=== PATIENT | female | born 1990 | race Hispanic/Latino ===

== ENCOUNTER 2020-02-08 07:10 | Day surgery (SDC) | payer MEDICAID, OTHER ==
[2020-02-08 07:49] VITALS: BMI 29.8
[2020-02-08] MEDS ORDERED: hydrALAZINE 20 MG/ML VIAL SLOW IVP PRN (08:49)
[2020-02-08] MEDS ORDERED: Famotidine 20 MG TAB PO SCH (09:00)
--- NOTE | 2020-02-08 09:01 | PDOC.FPROB ---
FMR OB H&P: HPI - History of Present Illness Chief Complaint: Abdominal Pain Indentification: History of Present Illness: Pt is a 29 yo at 37.5 weeks by 1T u/s, ABI who presents with upper abdominal pain/discomfort worsening since last night. She states it is her "upper stomach". The pain is constant, not alleviated by anything although she has not taken any medication. She has not had a cholecystectomy but admitted to an appendectomy. She has a bad taste in her mouth. She has PMH of reflux not taking medication. Endorsed 1 episode of emesis. She denies LOF, vaginal bleeding, intense/diffuse abdominal pain, dysuria, hematuria, vaginal discharge. She does not know if these are contractions. 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 Smoked tobacco 5 years ago. - Family History Family History: non-contributory FMR OB H&P: Medications - Current Home Medications: Medication Instructions Recorded Confirmed Type metFORMIN [Glucophage] 1 tab PO DAILY 02/08/20 02/08/20 History Allergies/Adverse Reactions: Allergies Allergy/AdvReac Type Severity Reaction Status Date / Time NSAIDS (Non-Steroidal Allergy Verified 02/08/20 07:44 Anti-Inflamma FMR OB H&P: ROS - Review of Systems General: denies: fever/chills, weight/appetite/sleep changes ENT: denies: nasal congestion, rhinorrhea Cardiovascular: denies: chest pain, edema Gastrointestinal: reports: abdominal pain, indigestion, nausea, vomiting. denies: cramping, diarrhea, constipation Genitourinary (Female): denies: incontinence, dysuria, hematuria Musculoskeletal: denies: pain, stiffness Neurologic: denies: numbness, syncope Integumentary: denies: rash, lesions Hematologic/Lymphatic: denies: prolonged or excessive bleeding FMR OB H&P: Vital Signs - Maternal Vital signs: BP WNL - Heart Tones Variability: moderate Acceleration: present Category: category 1 [place] contractions every: q3-4 mins FMR OB H&P: Physical Exam - Physical Exam General: NAD, awake, alert and oriented HEENT: PERRLA, EOMI Neck: FROM, no JVD Heart: RRR, normal S1/S2 General: CTAB, no respiratory distress, no wheezing Abdomen: soft, gravid Deviation from normal: mild tenderness in epigastric region, negative gonzalez's sign Musculoskeletal: FROM in all four extremities Neurological: cranial nerves II through XII intact, sensation to pain,touch and proprioception grossly normal Skin: no rash, capillary refill <2 seconds Lymphatic: no purpura, no petechia Psychiatric: intact recent and remote memory, good judgement and insight FMR OB H&P: Results - Labs Lab results: Laboratory Results - last 24 hr 02/08/20 07:43 POC Glucose 86 FMR OB H&P: A/P - Problem List (1) Third trimester Current Visit: Yes Status: Acute Code(s): Z34.93 - ENCNTR FOR SUPRVSN OF NORMAL PREG, UNSP, THIRD TRIMESTER (2) Gestational diabetes Current Visit: Yes Status: Acute Code(s): O24.419 - GESTATIONAL DIABETES MELLITUS IN , UNSP CONTROL (3) Abdominal pain Current Visit: Yes Status: Acute Code(s): R10.9 - UNSPECIFIED ABDOMINAL PAIN Disposition: Pt is a 29 yo at 37.5 wks by 1T U/S, ABI 37.5 wks, who presents for upper abdominal discomfort: # Abdominal Discomfort Likely GERD, r/o gallbladder etiology. Chacorta on monitor - will reassess in 2 hours for change. - pending CMP, RUQ U/S - famotidine for reflux - tylenol for pain # Term IUP 1, thich, high on check today. eIOL 02/17/20 for A2GDM. - will recheck in 2 hours for progression of labor - pending 3T labs from [facility] # A2GDM BG WNL - continue metformin Dispo: pending workup, assess for cervical change in 2 hours. Discussion: Date/Time: 02/08/20 0901 This H&P was discussed with Dr. Gordon and Dr. Zamora who agree with the above documentation and plan.
[2020-02-08] MEDS ORDERED: Acetaminophen 325 MG TAB PO SCH (09:45)
--- NOTE | 2020-02-08 10:17 | HP ---
TIME OF EVALUATION: The time of evaluation was roughly 0920 until 0940. The time is now 0944. LOCATION: Triage bed A. In brief, this is a patient of the clinic and I have discussed the case with Yariel Mcgowan, who is a resident center receptionist. CHIEF COMPLAINT: Possible gastroesophageal reflux symptoms (which have been chronic). HISTORY OF PRESENT ILLNESS: This is a 29-year-old G1 at 37 weeks and 5 days, who has a scheduled induction of labor on February 16 at around 39 weeks. She has A2 diabetes and she is on metformin. She states that she has had this persistent reflux symptom in her mid chest, but there is no shortness of breath and no true chest pain. There is no diaphoresis. There is no loss of consciousness. She also has a "bad taste" in her mouth, which to her feels like "reflux." There is no leakage of fluid. No contractions as well. She notes a few contractions. She does not state that they are regular and that is not her presenting complaint. REVIEW OF SYSTEMS: Complete review of systems was checked and is otherwise negative unless specified in the HPI. PAST MEDICAL HISTORY: Otherwise negative. OB HISTORY: She is a G1, P0. PAST SURGICAL HISTORY: Prior Appy. SOCIAL HISTORY: Negative for alcohol, tobacco, or drug use. ALLERGIES: NONE. PHYSICAL EXAMINATION: VITAL SIGNS: She is afebrile and normotensive. Blood sugar at bedside was 86. Abd soft and NT. Her cervix is1, thick and high. MONITORS: Tocodynamometer shows irregular contractions about every 4 minutes or so, and the heart tracing is reactive with accelerations above a baseline of about 130 with moderate variability. There are no pathological decelerations. ASSESSMENT: This is a G1, P0, at 37 weeks and 5 days, 29-year-old, with epigastric reflux symptoms. There are no symptoms of biliary colic or of true chest pain. PLAN: 1. To be conservative, I have requested Dr. Mcgowan get a complete metabolic profile and a right upper quadrant ultrasound to rule out any atypical presentations of hepatic conditions. 2. We will check her cervix in 2 hours. 3. We will order Pepcid for conservative care. 4. I have seen the patient at bedside and she is clinically stable. 5. I have explained the plan to the patient in detail. Job ID: [id number] [facility]
--- NOTE | 2020-02-08 10:46 | ULT ---
Exam: Right upper quadrant ultrasound: HISTORY: Right-sided abdominal pain and right upper and right lower quadrant. COMPARISON: None FINDINGS: Liver: Within normal limits Gallbladder: Echogenic foci are seen in the gallbladder lumen which demonstrate posterior shadowing w ith additional areas of increased echogenicity. Findings are most likely attributable to combination of gallbladder calculi, cholesterol crystals, and sludge within the gallbladder lumen. No gallbladder wall thickening or pericholecystic fluid is seen. Common bile duct: The common duct is normal in caliber measuring 0.3 cm in diameter. Pancreas: Limited visualized portions of the pancreas demonstrate a normal sonographic appearance. Right kidney: Right kidney demonstrates a normal sonographic appearance without evidence of hydroneph rosis. The right kidney measures 11.5 cm in length. IVC: The visualized IVC demonstrates a normal sonographic appearance. Limited sonographic evaluation was obtained of the right lower quadrant region of patient's area of p ain. There is a hypoechoic rounded structure measuring 4.2 cm x 3.7 cm x 2.2 cm. This structure does not demonstrate flow on color flow or Doppler evaluation. The exact etiology of this structure i s uncertain. This structure is located within the superior facial portion of the anterior right lower quadrant. This structure does not elongate to suggest that this represents the appendix. IMPRESSION: 1. Hypoechoic structure right lower quadrant region of patient's area of pain. This does not elongate or demonstrate a tubular configuration to definitely suggest that this represents the appendix. The exact etiology is uncertain. Additional imaging with CT or MRI would be warranted for further dread luation of this structure. Appendicitis cannot be excluded based on this examination. 2. Cholelithiasis and gallbladder sludge. Common duct is normal in caliber. 3. No evidence of hydronephrosis
[2020-02-08 11:24] LABS: ALT (SGPT) 13 U/L (8-55); AST (SGOT) 14 U/L (5-34); Albumin 3.5 g/dL (3.5-5.0); Alkaline Phosphatase 95 U/L (40-110); Anion Gap 11 mmol/L (10-20); BUN (Urea Nitrogen) 7 mg/dL (7.0-18.7); Bilirubin, Total 0.4 mg/dL (0.2-1.2); Calc. Creatinine Clearance 195 mL/min (70-130); Calcium 8.7 mg/dL (7.8-10.44); Carbon Dioxide 23 mmol/L (22-29); Chloride 106 mmol/L (98-107); Estimated GFR-MDRD Greater than 90; Globulin 3.2 g/dL (2.4-3.5); Glucose 80 mg/dL (70-105); Protein, Total 6.7 g/dL (6.0-8.3); Sodium 136 mmol/L (136-145)
--- NOTE | 2020-02-08 11:36 | PDOC.LDPN ---
Labor & Delivery Progress Note - Subjective Subjective: comfortable - Objective Vital signs reviewed and normal: yes General: NAD, resting SVE: 1/thick/high - Assessment (1) Third trimester Code(s): Z34.93 - ENCNTR FOR SUPRVSN OF NORMAL PREG, UNSP, THIRD TRIMESTER Current Visit: Yes Status: Acute (2) Gestational diabetes Code(s): O24.419 - GESTATIONAL DIABETES MELLITUS IN , UNSP CONTROL Current Visit: Yes Status: Acute (3) Abdominal pain Code(s): R10.9 - UNSPECIFIED ABDOMINAL PAIN Current Visit: Yes Status: Acute (4) Cholelithiasis Code(s): K80.20 - CALCULUS OF GALLBLADDER W/O CHOLECYSTITIS W/O OBSTRUCTION Current Visit: Yes Status: Acute Plan: other (OBGYN Faculty: Aware of RUQ sono finding cholelithiasis. No CBD dilation or sono evidence of GB wall thickening. OK for outpat care with GB information provided.) -: Pt is a 29 yo at 37.5 wks by 1T U/S, ABI 37.5 wks, who presents for upper abdominal discomfort: # Abdominal Discomfort Likely GERD, r/o gallbladder etiology. Chacorta on monitor - will reassess in 2 hours for change. - pending CMP, RUQ U/S - famotidine for reflux - tylenol for pain # Term IUP 1, thich, high on check today. eIOL 02/17/20 for A2GDM. - will recheck in 2 hours for progression of labor - pending 3T labs from [facility] # A2GDM BG WNL - continue metformin # Cholelithiasis - counseled pt, pt understands symptoms and return precautions # Vaginal Discharge Curd-like appearing, white, non-foul smelling - discharge with monostat Dispo: discharge to home with return precautions given OBGYN Faculty: Aware of GB findings. No CBD dilation or GB wall thickening. OK to follow up PP. Info provided by Resident team. CMP ok.
== END 2020-02-08 11:54 | disposition home health service (06) ==
LOC: L&D/OP 07:10
PROVIDERS: ATTEND Family Medicine
DX: O99.613 Diseases of the digestive system complicating pregnancy, third trimester (principal); K80.20 Calculus of gallbladder without cholecystitis without obstruction; O24.415 Gestational diabetes mellitus in pregnancy, controlled by oral hypoglycemic drugs; Z3A.37 37 weeks gestation of pregnancy; Z79.84 Long term (current) use of oral hypoglycemic drugs; Z88.6 Allergy status to analgesic agent
CPT/HCPCS: 36415; 36416; 76705; 80053; 99284

== ENCOUNTER 2020-02-15 11:57 | Day surgery (SDC) | payer OTHER ==
[2020-02-15 12:31] VITALS: BP 112/71; TEMP 98.2; BMI 30.9
--- NOTE | 2020-02-15 13:15 | PDOC.LDHP ---
Labor and Delivery H&P Chief complaint: decreased movement HPI: 29yo @ 38.5 wks by LMP and 6.5 wk sono presents from clinic with complaint of decreased movement x2 days and an incomplete BPP of 2. Pt states she has been feeling normal, denies any vaginal pain/bleeding/discharge, LOF. Does note feeling some very mild contractions intermittently. Pt has induction scheduled at 39 weeks. She is a GDM A2 and takes metformin 500 qam with glucose ranging from 85-110 recently. Current gestational age (weeks): 38 (.5) Dating criteria: last menstrual period, first trimester ultrasound Grav: 1 Para: 0 Current complications: gestational diabetes (A2) Abnormal US findings: No Current medications: pre- vitamins Previous surgical history: appendectomy Allergies/Adverse Reactions: Allergies Allergy/AdvReac Type Severity Reaction Status Date / Time naproxen Allergy Verified 02/15/20 12:34 NSAIDS (Non-Steroidal Allergy Verified 02/08/20 07:44 Anti-Inflamma Social history: none - Physical Exam Vital signs reviewed and normal: yes General: NAD Heart: RRR Lungs: nonlabored breathing Abdomen: NTTP Extremeties: normal range of motion FHT: category 1, acceleration absent, variability present - OB Labs Blood type: B RH: positive Antibody Screen: negative HIV: negative RPR: negative HEPSAg: negative 1 hour GCT: positive (171) 3 hour GTT: 69/174/155/118 GBS: negative Rubella: immune Additional Labs: hep c neg A1c 5.3% - Assessment Encounter of 3rd Trimester - no abnormal findings - Plan -: Concern for reported abnormal BPP and Decreased Movement BPP:04/27 GELY: 10 NST: reactive Growth: EFW 3149g, EGA 37.1 Pt reports no concerning symptoms. GDM appears well controlled. BPP done in the office today that was 2 was over a 20 minute timeframe and thus incomplete - no NST was performed at that time. Pt is considered stable for discharge and follow up on her induction date at 39 weeks. Discussed return precautions prior to discharge - pt and FOB expressed understanding. Adebayo Armendariz PGY1 This case was discussed my attending, Dr. Jefe Armas, who agreed with the plan. Addendum - Attending - Attending Attestation Date/Time: 02/16/20 5628 Seen and examined on date of service. BPP in office was reportedly only for 20 minutes and no NST performed. Repeat growth and APT reassuring. D/c with follow up for induction @ 39/0.
--- NOTE | 2020-02-15 14:20 | ULT ---
EXAM: Limited OB ultrasound COMPARISON: None HISTORY: female. Evaluate size. Decreased movement.. TECHNIQUE: Multiplanar grayscale and color Doppler transabdominal sonographic images are obtained. FINDINGS: There is a single intrauterine gestation in cephalic presentation. Cardiac Doppler demonstr ates heart tones with a heart rate of 135 beats per minute. The placenta is located maternal right without evidence of placenta previa. There is a normal amount of amniotic fluid with a n amniotic fluid index of 10 centimeters. Cervix not visualized due to shadowing from head. biometry measurements: BPD 8.95 cm -- 36 weeks 2 days HC 33.32 cm -- 38 weeks AC 33.51 cm -- 37 weeks 3 days FL 7.2 cm -- 36 weeks 6 days The estimated gestational age by ultrasound is 37 weeks 1 day with an ABI on03/06/2020. Gestational ag e by the last menstrual period is not provided. The estimated weight by ultrasound is 3149 g (6 pounds, 15 ounces). This exam was not performed for evaluation of the anatomical structures. A score of 2 was obtained each for tone, breathing, movements, and amniotic fluid v olume IMPRESSION: 1. Single intrauterine gestation in cephalic presentation with heart tones documented. Estimat ed gestational age by ultrasound is 37 weeks 1 day with ABI on 03/06/2020. 2. Estimated weight is 3149 g (6 pounds, 15 ounces). 3. Amniotic fluid index is 10 centimeters. 4. Total biophysical profile score of 8 out of 8 is obtained.
== END 2020-02-15 13:47 | disposition home health service (06) ==
LOC: L&D/OP 11:57
DX: O36.8130 Decreased fetal movements, third trimester, not applicable or unspecified (principal); O24.415 Gestational diabetes mellitus in pregnancy, controlled by oral hypoglycemic drugs; Z3A.38 38 weeks gestation of pregnancy; Z88.6 Allergy status to analgesic agent
CPT/HCPCS: 76815; 76819; 99283

== ENCOUNTER 2020-02-16 08:55 | Outpatient (CLI) | payer MEDICAID, OTHER ==
[2020-02-16 17:52] LABS: SARS-CoV-2 MS2 Positive; SARS-CoV-2 N Gene Negative; SARS-CoV-2 S Gene Negative; SARS-CoV-2 orf1ab Negative
== END 2020-02-16 08:56 | disposition home or self-care (01) ==
LOC: ERS 08:55 → LAB 08:56
PROVIDERS: ATTEND Student in an Organized Health Care Education/Training Program
DX: Z01.812 Encounter for preprocedural laboratory examination (principal); Z11.59 Encounter for screening for other viral diseases
CPT/HCPCS: 87635; U0003

== ENCOUNTER 2020-02-17 14:28 | Inpatient (IN) | payer OTHER ==
[~2020-02-17 14:28] MED LIST: Bupivacaine/Epinephrine 0.25% 30 ML VIAL ONE
[2020-02-17] MEDS ORDERED: Carboprost 250 MCG/ML AMP IM PRN (19:30)
[2020-02-17] MEDS ORDERED: Lidocaine 1% (PF) 30 ML VIAL SC PRN (19:30)
[2020-02-17] MEDS ORDERED: Diphenoxylate HCl/Atropine Tablet PO PRN (19:30)
[2020-02-17] MEDS ORDERED: NS / Oxytocin 40 units/1000ml 1,000 ML IV PRN (19:30)
[2020-02-17] MEDS ORDERED: Methylergonovine 0.2 MG/ML VIAL IM PRN (19:30)
[2020-02-17] MEDS ORDERED: Misoprostol 200 MCG TAB PR PRN (19:30)
[2020-02-17] MEDS ORDERED: Dextrose 50% Abboject 50 ML SYRINGE SLOW IVP PRN (19:32)
[2020-02-17] MEDS ORDERED: Dextrose 5% in Water 1,000 ML IV PRN (19:32)
[2020-02-17] MEDS ORDERED: HumaLOG 300 UNITS/3 ML VIAL SC PRN (19:32)
--- NOTE | 2020-02-17 20:17 | PDOC.FPROB ---
FMR OB H&P: Medications - Current Home Medications: Medication Instructions Recorded Confirmed Type metFORMIN [Glucophage] 1 tab PO DAILY 02/08/20 02/17/20 History Allergies/Adverse Reactions: Allergies Allergy/AdvReac Type Severity Reaction Status Date / Time naproxen Allergy Verified 02/17/20 20:25 NSAIDS (Non-Steroidal Allergy Verified 02/17/20 20:25 Anti-Inflamma FMR OB H&P: A/P - Problem List (1) Gestational diabetes Status: Acute Code(s): O24.419 - GESTATIONAL DIABETES MELLITUS IN , UNSP CONTROL (2) Third trimester Status: Acute Code(s): Z34.93 - ENCNTR FOR SUPRVSN OF NORMAL PREG, UNSP, THIRD TRIMESTER Discussion: Date/Time: 02/17/202013 PCP: Ashley HPI: This is a 29 yo presenting for induction 2/2 A2GDM. She affirms movement, denies cxns, ROM, bleeding. Denies ROLDAN, visual changes, SOB, or swelling. She had incomplete care as she moved here from [place] at 24 weeks but then returned from [place] for >1 month and has now returned. History: OB hx: G1 [employer]: LSIL with HR HPV PMH: denies hx HTN, DM, asthma PSH: appendectomy Meds: PNV, metformin 500mg BID All: ibuprofen, naproxen-> facial swelling Soc Hx: denies smoking, alcohol, drugs Fam Hx: denies downs, congenital defects GBS: neg Blood type: B+ Ab screen: neg HIV: neg RPR: neg Hep B: neg Rubella: immune GC/CT: neg REVIEW OF SYSTEMS: Gen: no fever, chills, or sweats Neuro: no numbness/tingling, no weakness, denies headache ENT: denies congestion Eyes: no visual changes Resp: denies cough, no production, no SOB, no wheeze Card: denies chest pain, no palpitations GI: denies nausea, vomiting, diarrhea : no dysuria, no hematuria Skin: no rash, no erythema Psych: denies hx anxiety/depression Vitals: T: 98.5 R: 18 BP: 114/76 P:67 at: 98% on RA PHYSICAL EXAMINATION: General: NAD, alert and oriented x3 HEENT: EOMI, normal sclera Neck: Supple. Full ROM. Heart/Cardiovascular System: RRR, Cap refill < 3 seconds, no rub, no murmur Lungs/Respiratory System: clear to auscultation bilaterally. No increased work of breathing. Room air. Abdomen/Gastro-Intestinal System: no abdominal tenderness, normal bowel sounds, Gravid Extremities: Warm extremities. No cyanosis or edema. Neuro: No gross deficits appreciated Psychiatry: Awake, Alert and cooperative with exam Skin: no lesions, no rashes Musculoskeletal: Full ROM A/P: This is a 29 yo here for induction 2/2 A2GDM FHT: 140 baseline, mod variability, no decels, accels present [place]: irregular contractions # - SVE: cl/50%/-2 - Cytotec induction - GBS neg # A2GDM - Check glucose q4 hr, goal <126 - Metformin 500mg BID - 3106g at 36.5wk US # LSIL w/ HR HPV - Colpo 6 wk PP Addendum - Attending - Attending Attestation Date/Time: 02/17/202128 I personally evaluated the patient and discussed the management with Dr. Duran. I agree with the History, Examination, Assessment and Plan documented above with any addition or exceptions noted below.
[2020-02-17 20:33] VITALS: BMI 29.6
[2020-02-17] MEDS: Misoprostol 100 MCG TAB VAG SCH (21:05)
[2020-02-17 22:36] LABS: Hemoglobin 12.6 g/dL (12.0-16.0); Mean Corpuscular HGB CONC 31.4 g/dL (32.0-36.0); Mean Corpuscular Hemoglobin 29.2 pg (27.0-31.0); Mean Corpuscular Volume 93.1 fL (78.0-98.0); Mean Platelet Volume 8.4 fL (7.4-10.4); Platelet Count 414 thou/uL (130-400); RBC Distribution Width 12.3 % (11.5-14.5); Red Blood Cell (RBC) Count 4.33 mill/uL (4.20-5.40); White Blood Cell (WBC) Count 11.1 thou/uL (4.8-10.8)
[2020-02-17 23:16] LABS: HBSAg Index 0.33 S/CO (0-0.99); Hep B Surf Ag Non-Reactive S/CO (NonReactive)
[2020-02-18] MEDS: Misoprostol 100 MCG TAB VAG SCH ×2 (00:49→14:19)
--- NOTE | 2020-02-18 00:52 | PDOC.LDPN ---
Labor & Delivery Progress Note - Subjective Subjective: comfortable - Objective Vital signs reviewed and normal: yes General: NAD, resting, breathing through contractions Uterine fundus: non tender SVE: @ 00:30 Dilation: 1 Effacement: 75% Station: -2 FHT: category 1 [place] contractions every: 2 minutes Plan: continue plan of care, other (Will place cytotec #2 when contractions space out further. ) -: This is a 29 yo here for induction 2/2 A2GDM FHT: 140 baseline, mod variability, no decels, accels present [place]: contractions q2 min # - SVE: cl/50%/-2 @ 20:00 - SVE: 1/75/-2 @ 00:30 - Cytotec induction - GBS neg # A2GDM - Check glucose q4 hr, goal <126 - Metformin 500mg BID - 3106g at 36.5wk US # LSIL w/ HR HPV - Colpo 6 wk PP
[2020-02-18] MEDS: Butorphanol Tartrate 1 MG/ML VIAL SLOW IVP PRN ×2 (01:54→03:27)
[2020-02-18] MEDS ORDERED: Fentanyl 4 mcg/Bup 0.1% Cadd 100 ML ONE (03:53)
[2020-02-18] MEDS ORDERED: Dextrose 5%-Lactated Ringers 1,000 ML IV SCH (04:45)
--- NOTE | 2020-02-18 04:45 | PDOC.LDPN ---
Labor & Delivery Progress Note - Subjective Subjective: comfortable, painful contractions - Objective Vital signs reviewed and normal: yes General: NAD, resting, breathing through contractions Uterine fundus: non tender SVE: @ 0330 by RN Dilation: /-1 FHT: category 2 (Baseline 120, few early decels present, acells present ) [place] contractions every: 2min Other exam findings: SROM 0130 Procedures: EPIDURAL 0430 Plan: continue plan of care -: This is a 29 yo here for induction 2/2 A2GDM FHT: 140 baseline, mod variability, no decels, accels present [place]: contractions q2 min # Term sIUP - SVE: cl/50%/-2 @ 20:00 - SVE: /-2 @ 00:30 - SVE /-1 @ 0330, wanting epidural - Cytotec induction - GBS neg # A2GDM - Category 2 tracing. BG 72, changed fluids from LR to D5 LR @ 125. - Check glucose q2 hr, goal <126 - Metformin 500mg BID - 3106g at 36.5wk US # LSIL w/ HR HPV - Colpo 6 wk PP
[2020-02-18] MEDS ORDERED: Acetaminophen 325 MG TAB PO PRN (05:13)
[2020-02-18] MEDS ORDERED: Lactated Ringer's 500 ML IV PRN (05:13)
[2020-02-18] MEDS ORDERED: Naloxone HCl 0.4 mg/ml Vial IVP PRN ×2 (05:13)
[2020-02-18] MEDS ORDERED: diphenhydrAMINE 50 MG/ML VIAL IVP PRN (05:13)
[2020-02-18] MEDS ORDERED: Ondansetron PF 4 MG/2 ML Vial IVP PRN ×2 (05:13→10:49)
[2020-02-18] MEDS ORDERED: EPHEDRINE 25 MG/5 ML SYRINGE SLOW IVP PRN (05:13)
[2020-02-18] MEDS ORDERED: Promethazine HCl 25 MG/ML VIAL IM PRN (05:13)
[2020-02-18] MEDS ORDERED: Communication Order-Pharmacy FS SCH (05:15)
[2020-02-18] MEDS ORDERED: Fentanyl 4 mcg/Bupivacaine 0.1% Cassette 100 ML EPIDURAL SCH (05:15)
--- NOTE | 2020-02-18 06:55 | PDOC.BPN ---
- Brief Progress Note BG119 switched back to LR, goal <126 blood glucose Cat 1 strip currently with good variability, accles present, early decels 1 late variable Expectant management
[2020-02-18] MEDS ORDERED: Calcium Carbonate 500 MG ChewTAB PO PRN (07:50)
[2020-02-18 10:06] LABS: Actual Bicarbonate (HCO3a) 23.1 mEq/L (22-28)
--- NOTE | 2020-02-18 10:34 | PDOC.OPDEL ---
OB Operative/Delivery Note - Additional Findings/Plan Compilations/Other Findings: Vaginal Delivery Procedure note Delivering Physician: Dr. Dagoberto Duran Attending: Dr. Jefe Armas Procedure: Spontaneous Vaginal Delivery Anesthesia: epidural QBL:79 ml Pre-op Diagnosis: 1. Term intrauterine induction 2. A2GDM 3. LSIL w/ HR HPV Post-op Diagnosis: 1. Term intrauterine , delivered 2. same as above Indications: A 29y/o female presented for induction Delivery Note: This is 29yo F now @ 39.1wks who delivered a viable F infant at 0943 on 02/17. Following an uneventful antepartum course, a vigorous female was delivered over an intact perineum in the occipitoanterior position. Anterior Shoulder and then remainder of the body delivered. No nuchal cord. The head was held down and mouth and nares were bulb suctioned. Cord clamped and cut and cord blood collected. Placenta delivered intact in the Vega/Marie presentation with a 3 vessel cord noted. Fundal massage was performed and the fundus was firm. The cervix and vagina were inspected and a 2nd degree perineal laceration was appreciated. Repaired with 2-0 vicryl in the usual fashion with good approximation and hemostasis. Infant went to nursery in good condition for routine care. Apgars were 7/9 at 1 & 5 minutes, respectively. Patient tolerated delivery well and went to after routine recovery/ care. Addendum - Attending - Attending Attestation Date/Time: 02/18/20 7847 I personally evaluated the patient and discussed the management with Dr. Duran. I agree with the History, Examination, Assessment and Plan documented above with any addition or exceptions noted below.
[2020-02-18] MEDS ORDERED: Bisacodyl 10 MG SUPP PR PRN (10:49)
[2020-02-18] MEDS ORDERED: Lanolin Ointment 7 GM TUBE TOP PRN (10:49)
[2020-02-18] MEDS ORDERED: Benzocaine-Menthol 82.5 ML CAN TOP PRN (10:49)
[2020-02-18] MEDS ORDERED: Milk Of Magnesia 30 ML UDCUP PO PRN (10:49)
[2020-02-18] MEDS ORDERED: NS / Oxytocin 40 units/1000ml 1,000 ML IV SCH (10:49)
[2020-02-18] MEDS ORDERED: hydrALAZINE 20 MG/ML VIAL SLOW IVP PRN (10:49)
[2020-02-18] MEDS ORDERED: Acetaminophen/Codeine 30-300mg Tablet PO PRN (10:49)
[2020-02-18] MEDS: Acetaminophen 500 MG TAB PO SCH ×3 (14:12→22:45)
[2020-02-18] MEDS: Ferrous Sulfate 325 MG TAB PO SCH (14:13)
[2020-02-18] MEDS: Docusate Calcium (SURFAK) 240 MG CAP PO SCH (21:21)
--- NOTE | 2020-02-19 04:52 | PDOC.PP ---
Post Progress Note Post Day #: 1 Subjective: Mom states she is feeling well, able to walk to restroom. Tolerating PO. Passing gas. No difficulty with urination. Bleeding less than menses. PO intake tolerated: yes Flatus: yes Ambulation: yes Vital Signs (12 hours) Temp Pulse Resp BP Pulse Ox 02/19/20 00:02 98.6 F 75 18 109/72 96 02/18/20 20:00 98.6 F 76 18 94/61 94 L Weight Weight 73.482 kg - Physical Examination General: NAD Cardiovascular: no m/r/g, RRR Respiratory: clear to auscultation bilaterally, non-labored breathing Abdominal: appropriately TTP Fundus firm & at: 1 cm below umbilicus Extremities: negative homans (B) Neurological: no gross focal deficits Psychiatric: A&Ox3, normal affect Result Diagrams: 02/17/20 22:22 Additional Labs: Post Labs Blood Type B POSITIVE 02/17/20 23:26 Hep Bs Antigen Non-Reactive S/CO (NonReactive) 02/17/20 22:22 (1) Gestational diabetes Code(s): O24.419 - GESTATIONAL DIABETES MELLITUS IN , UNSP CONTROL Status: Acute (2) Third trimester Code(s): Z34.93 - ENCNTR FOR SUPRVSN OF NORMAL PREG, UNSP, THIRD TRIMESTER Status: Acute - Assessment/Plan # PPD1 - H/H pending - tylenol, norco for pain control - tolerating PO # A2GDM -hold metformin, glucose appropriate, ACHS # LSIL w/ HR HPV - Colpo 6 wk PP
[2020-02-19] MEDS: Acetaminophen 500 MG TAB PO SCH ×4 (05:15→23:47)
[2020-02-19 06:15] LABS: Hemoglobin 11.8 g/dL (12.0-16.0)
[2020-02-19] MEDS: Ferrous Sulfate 325 MG TAB PO SCH ×2 (07:34→15:02)
[2020-02-19] MEDS: Docusate Calcium (SURFAK) 240 MG CAP PO SCH ×2 (09:53→21:45)
[2020-02-19] MEDS: Prenatal Vitamin 1 TAB PO SCH (09:53)
[2020-02-19] MEDS ORDERED: Adacel (T-DAP) 0.5 ML SYRINGE IM ONE (10:49)
[2020-02-20] MEDS: Acetaminophen 500 MG TAB PO SCH (05:19)
--- NOTE | 2020-02-20 06:18 | PDOC.PP ---
Post Progress Note Post Day #: 2 Subjective: Pain well controlled, minimal bleeding, tolerating PO, had BM. Assisted patient with , provided education and encouragement. PO intake tolerated: yes Flatus: yes Ambulation: yes Vital Signs (12 hours) Temp Pulse Resp BP Pulse Ox 02/19/20 20:00 98.8 F 62 16 120/77 96 Weight Weight 73.482 kg - Physical Examination General: NAD Cardiovascular: no m/r/g, RRR Respiratory: clear to auscultation bilaterally, non-labored breathing Abdominal: + bowel sounds, lochia, no distention, appropriately TTP Extremities: negative homans (B) Skin: no rash Neurological: no gross focal deficits Psychiatric: A&Ox3, normal affect Result Diagrams: 02/19/20 05:48 Additional Labs: Post Labs Blood Type B POSITIVE 02/17/20 23:26 Hep Bs Antigen Non-Reactive S/CO (NonReactive) 02/17/20 22:22 (1) Gestational diabetes Code(s): O24.419 - GESTATIONAL DIABETES MELLITUS IN , UNSP CONTROL Status: Acute (2) Third trimester Code(s): Z34.93 - ENCNTR FOR SUPRVSN OF NORMAL PREG, UNSP, THIRD TRIMESTER Status: Acute (3) care and examination Code(s): Z39.2 - ENCOUNTER FOR ROUTINE FOLLOW-UP Status: Acute - Assessment/Plan # PPD2 - Hgb 11.8 - tylenol, norco for pain control - tolerating PO # A2GDM -hold metformin, glucose appropriate # LSIL w/ HR HPV - Colpo 6 wk PP, discussed with patint Control: progestin D/c today, precautions discussed
[2020-02-20 08:07] VITALS: BP 103/66; TEMP 97.8
[2020-02-20] MEDS: Prenatal Vitamin 1 TAB PO SCH (08:16)
[2020-02-20] MEDS: Ferrous Sulfate 325 MG TAB PO SCH (08:16)
[2020-02-20] MEDS: Docusate Calcium (SURFAK) 240 MG CAP PO SCH (08:16)
== END 2020-02-20 13:10 | disposition home or self-care (01) | DRG 806 ==
LOC: L&D 19:23 → 3SW 02-18 13:49
PROVIDERS: ADMIT Student in an Organized Health Care Education/Training Program; ATTEND Student in an Organized Health Care Education/Training Program
PROC: 10E0XZZ Delivery of Products of Conception, External Approach (ICD-10-PCS; principal; 2020-02-18)
PROC: 0KQM0ZZ Repair Perineum Muscle, Open Approach (ICD-10-PCS; 2020-02-18)
PROC: 6A550ZT Pheresis of Cord Blood Stem Cells, Single (ICD-10-PCS; 2020-02-18)
PROC: 3E033VJ Introduction of Other Hormone into Peripheral Vein, Percutaneous Approach (ICD-10-PCS; 2020-02-18)
DX: O24.425 Gestational diabetes mellitus in childbirth, controlled by oral hypoglycemic drugs (principal); O98.32 Other infections with a predominantly sexual mode of transmission complicating childbirth; Z37.0 Single live birth; Z3A.39 39 weeks gestation of pregnancy; Z79.84 Long term (current) use of oral hypoglycemic drugs; A63.0 Anogenital (venereal) warts; O76 Abnormality in fetal heart rate and rhythm complicating labor and delivery; O70.1 Second degree perineal laceration during delivery
CPT/HCPCS: 36415; 36416; 51702; 82805; 85014; 85018; 85027; 86762; 86850; 86900; 86901; 87340; 87635; J0595; U0003

== ENCOUNTER → 2021-02-26 | Emergency (ER) | payer OTHER ==
[2021-02-26 14:22] LABS: #Basophils 0.1 thou/uL (0.0-0.2); #Eosinphils 0.3 thou/uL (0.0-0.7); #Lymphocytes 2.5 thou/uL (1.20-3.40); #Monocytes 0.4 thou/uL (0.11-0.59); #Neutrophils 5.5 thou/uL (1.40-6.50); %Basophils 0.6 % (0.0-1.0); %Eosinophils 3.3 % (0.0-10.0); %Lymphocytes 28.1 % (21.0-51.0); %Monocytes 4.9 % (0.0-10.0); Hemoglobin 13.2 g/dL (12.0-16.0); Mean Corpuscular HGB CONC 33.6 g/dL (32.0-36.0); Mean Corpuscular Hemoglobin 30.7 pg (27.0-31.0); Mean Corpuscular Volume 91.2 fL (78.0-98.0); Mean Platelet Volume 6.5 fL (7.4-10.4); Platelet Count 488 thou/uL (130-400); RBC Distribution Width 11.4 % (11.5-14.5); White Blood Cell (WBC) Count 8.7 thou/uL (4.8-10.8)
[2021-02-26 14:35] LABS: BHCG - Serum Negative (NEGATIVE); Pregs Control Background? CLEAR/WHITE (CLR/WHITE); Pregs Control Bar Appear? YES (CONTROL BAR)
== END ==
LOC: ERS 13:03
DX: N93.8 Other specified abnormal uterine and vaginal bleeding (principal)
CPT/HCPCS: 36416; 84703; 85025; 94760